=== PATIENT | male | born 1950 | race Caucasian/White ===

== ENCOUNTER 2023-07-21 14:08 | Inpatient (IN) ==
[2023-07-21] MEDS ORDERED: Lactated Ringers 1000 ml BAG 1,000 ML IV ONE ×2 (16:03→16:42)
[2023-07-21 16:05] LABS: Hematocrit 37.9 % (38-53); Hemoglobin 12.9 g/dL (13.2-16.3); Mean Corpuscular Hemoglobin 31.2 pg (27-33); Mean Corpuscular Hgb Conc 34.1 g/dL (31-36); Mean Corpuscular Volume 91.7 fL (80-97); Mean Platelet Volume 6.9 fL (7.5-11.2); Platelet Count 345 10^3/uL (150-450); Red Blood Count 4.13 10^6/uL (4.06-5.63); Red Cell Distribution Width 13.1 % (12-17)
[2023-07-21] MEDS ORDERED: Ciprofloxacin 400mg IVPREMIX 400 MG/200 ML BAG IVPB ONE (16:35)
[2023-07-21 16:40] LABS: ABS Eosinophils 0.2 10^3/uL (0.0-0.5); ABS Lymphocytes 0.6 10^3/uL (1.0-4.8); ABS Monocytes 1.3 10^3/uL (0.0-1.1); ABS Neutrophils 25.9 10^3/uL (1.5-7.6); ABS Nucleated RBC 0.01 10^3/ul; Eosinophil % 0.8 %; RBC Morphology Normal (Normal)
[2023-07-21 16:51] LABS: Albumin 3.9 g/dL (3.2-5.2); Albumin/Globulin Ratio 1.3 (1-3); Calcium 9.4 mg/dL (8.6-10.3); Creatinine, Serum 1.13 mg/dL (0.67-1.17); Potassium 4.3 mmol/L (3.5-5.0); Total Bilirubin 1.4 mg/dL (0.2-1.0); Total Protein 6.9 g/dL (6.4-8.9); eGFR CKD-EPI 69.9 (>60)
[2023-07-21 17:01] LABS: Urine Appearance Cloudy; Urine Bilirubin Negative (Negative); Urine Blood Negative (Negative); Urine Color Amber; Urine Glucose Negative (Negative); Urine Ketones Negative (Negative); Urine Nitrite Negative (Negative); Urine Protein 2+(100 mg/dL) (Negative); Urine Specific Gravity 1.019 (1.002-1.030); Urine Urobilinogen Negative (Negative)
[2023-07-21 17:15] LABS: Urine Bacteria 2+ (Absent); Urine Red Blood Cell Absent (Absent); Urine White Blood Cell 3+(>20/hpf) (Absent)
[2023-07-21 17:45] LABS: High Sensitivity Troponin 1 Hr 11 pg/mL (<20)
[2023-07-21 20:25] LABS: C Reactive Protein 308.42 mg/L (<8.01)
[2023-07-21] MEDS ORDERED: Piperacillin/Tazobac 3.375 BAG 3.375 GM/100 ML BAG IV ONE (21:24)
[2023-07-21] MEDS ORDERED: Zosyn per Pharmacy NOTE FOLLOW UP SCH (22:00)
[2023-07-21 22:23] LABS: Erythrocyte Sed Rate 70 mm/Hr (0-19)
[2023-07-22] MEDS: ZOSYN 3.375 GM Q8H per EXTENDED INFUSION IV SCH ×3 (03:37→03:52)
[2023-07-22] MEDS ORDERED: Polyethylene Glycol 3350 17 GM PACKET PO PRN (04:20)
[2023-07-22 06:20] LABS: ABS Lymphocytes 0.9 10^3/uL (1.0-4.8); ABS Monocytes 0.8 10^3/uL (0.0-1.1); ABS Neutrophils 14.4 10^3/uL (1.5-7.6); Eosinophil % 0.1 %; Hematocrit 33.1 % (38-53); Hemoglobin 11.6 g/dL (13.2-16.3); Lymphocyte % 5.8 %; Mean Corpuscular Hemoglobin 31.5 pg (27-33); Mean Corpuscular Volume 89.8 fL (80-97); Mean Platelet Volume 7.1 fL (7.5-11.2); Platelet Count 258 10^3/uL (150-450); Red Blood Count 3.69 10^6/uL (4.06-5.63); Red Cell Distribution Width 13.2 % (12-17); White Blood Count 16.1 10^3/uL (3.6-10.2)
[2023-07-22 06:36] LABS: Creatinine, Serum 0.86 mg/dL (0.67-1.17); Potassium 3.6 mmol/L (3.5-5.0); eGFR CKD-EPI 93.1 (>60)
[2023-07-22 07:48] LABS: Direct Bilirubin 0.2 mg/dL (0.03-0.18); Total Bilirubin 1.2 mg/dL (0.2-1.0)
[2023-07-22 08:16] LABS: Magnesium 1.8 mg/dL (1.9-2.7)
[2023-07-22] MEDS ORDERED: Magnesium Sulfate IV 1GM/100ML 1 GM/100 ML BAG IV ONE (08:42)
[2023-07-22] MEDS: Enoxaparin 40 MG/0.4 ML SYR SUBCUT SCH (09:44)
[2023-07-22] MEDS: cefTRIAXone 1 gm/50 mL D5W 1 GM/50 ML BAG IV SCH ×2 (11:43→12:10)
[2023-07-22] MEDS ORDERED: Vancomycin 1,000 MG in NS 0.9% 250 ml 250 ML IVPB ONE (13:57)
[2023-07-22] MEDS ORDERED: Vancomycin per Pharmacy 1 EA NOTE FOLLOW UP PRN (14:15)
[2023-07-23] MEDS: Vancomycin 1000 MG in NS 0.9% 250 ML IVPB SCH ×2 (02:36→13:44)
[2023-07-23 06:21] LABS: Hematocrit 33.7 % (38-53); Hemoglobin 11.9 g/dL (13.2-16.3); Mean Corpuscular Hemoglobin 31.8 pg (27-33); Mean Corpuscular Hgb Conc 35.4 g/dL (31-36); Mean Corpuscular Volume 89.9 fL (80-97); Mean Platelet Volume 7.8 fL (7.5-11.2); Platelet Count 270 10^3/uL (150-450); Red Blood Count 3.75 10^6/uL (4.06-5.63); Red Cell Distribution Width 13.1 % (12-17); White Blood Count 8.4 10^3/uL (3.6-10.2)
[2023-07-23 06:40] LABS: Albumin/Globulin Ratio 1.3 (1-3); Calcium 7.6 mg/dL (8.6-10.3); Creatinine, Serum 0.76 mg/dL (0.67-1.17); Globulin 2.4 g/dL (2-4); Magnesium 1.9 mg/dL (1.9-2.7); Potassium 3.7 mmol/L (3.5-5.0); Total Bilirubin 0.7 mg/dL (0.2-1.0); Total Protein 5.4 g/dL (6.4-8.9); eGFR CKD-EPI 96.7 (>60)
[2023-07-23] MEDS ORDERED: KCL 20 MEQ/100 ML IVPREMIX 20 MEQ/100 ML BAG IV ONE (07:01)
[2023-07-23] MEDS ORDERED: Magnesium Sulfate IV 1GM/100ML 1 GM/100 ML BAG IV ONE (07:02)
[2023-07-23 07:48] LABS: ABS Lymphocytes 0.6 10^3/uL (1.0-4.8); ABS Monocytes 0.6 10^3/uL (0.0-1.1); ABS Neutrophils 7.1 10^3/uL (1.5-7.6); Eosinophil % 0.5 %; RBC Morphology Normal (Normal)
[2023-07-23] MEDS ORDERED: Polyethylene Glycol 3350 17 GM PACKET PO SCH (09:00)
[2023-07-23] MEDS: Enoxaparin 40 MG/0.4 ML SYR SUBCUT SCH (09:23)
[2023-07-23] MEDS: cefTRIAXone 1 gm/50 mL D5W 1 GM/50 ML BAG IV SCH (11:31)
[2023-07-24] MEDS: Vancomycin 1000 MG in NS 0.9% 250 ML IVPB SCH (02:22)
[2023-07-24 07:44] LABS: ABS Eosinophils 0.1 10^3/uL (0.0-0.5); ABS Monocytes 0.8 10^3/uL (0.0-1.1); ABS Neutrophils 5.8 10^3/uL (1.5-7.6); ABS Nucleated RBC 0.01 10^3/ul; Eosinophil % 1.1 %; Hematocrit 36.5 % (38-53); Hemoglobin 12.9 g/dL (13.2-16.3); Lymphocyte % 12.9 %; Mean Corpuscular Hemoglobin 31.8 pg (27-33); Mean Corpuscular Hgb Conc 35.4 g/dL (31-36); Mean Corpuscular Volume 89.9 fL (80-97); Mean Platelet Volume 7.4 fL (7.5-11.2); Nucleated Red Blood Cells % 0.1 %/100WBC (0.0-0.8); Platelet Count 320 10^3/uL (150-450); Red Blood Count 4.06 10^6/uL (4.06-5.63); Red Cell Distribution Width 13.4 % (12-17); White Blood Count 7.7 10^3/uL (3.6-10.2)
[2023-07-24 08:02] LABS: Albumin 3.2 g/dL (3.2-5.2); Albumin/Globulin Ratio 1.3 (1-3); Calcium 8.2 mg/dL (8.6-10.3); Creatinine, Serum 0.77 mg/dL (0.67-1.17); Globulin 2.5 g/dL (2-4); Total Bilirubin 0.6 mg/dL (0.2-1.0); Total Protein 5.7 g/dL (6.4-8.9); eGFR CKD-EPI 96.3 (>60)
[2023-07-24] MEDS: Enoxaparin 40 MG/0.4 ML SYR SUBCUT SCH (08:20)
[2023-07-24] MEDS: Polyethylene Glycol 3350 17 GM PACKET PO SCH (08:20)
[2023-07-24] MEDS: Psyllium PAK PO SCH (08:20)
[2023-07-24] MEDS ORDERED: Vancomycin Trough Check NOTE FOLLOW UP ONE (13:30)
[2023-07-24 14:11] LABS: Creatinine, Serum 0.89 mg/dL (0.67-1.17); eGFR CKD-EPI 92.2 (>60)
[2023-07-25 06:56] LABS: ABS Eosinophils 0.1 10^3/uL (0.0-0.5); ABS Lymphocytes 1.4 10^3/uL (1.0-4.8); ABS Monocytes 0.8 10^3/uL (0.0-1.1); ABS Neutrophils 5.1 10^3/uL (1.5-7.6); Eosinophil % 1.5 %; Hematocrit 37.2 % (38-53); Hemoglobin 12.9 g/dL (13.2-16.3); Lymphocyte % 18.9 %; Mean Corpuscular Hemoglobin 31.2 pg (27-33); Mean Corpuscular Hgb Conc 34.8 g/dL (31-36); Mean Corpuscular Volume 89.9 fL (80-97); Mean Platelet Volume 7.6 fL (7.5-11.2); Platelet Count 330 10^3/uL (150-450); Red Blood Count 4.14 10^6/uL (4.06-5.63); Red Cell Distribution Width 13.3 % (12-17); White Blood Count 7.4 10^3/uL (3.6-10.2)
[2023-07-25] MEDS: Polyethylene Glycol 3350 17 GM PACKET PO SCH (07:12)
[2023-07-25] MEDS: Psyllium PAK PO SCH (07:13)
[2023-07-25 07:15] LABS: Albumin 3.3 g/dL (3.2-5.2); Albumin/Globulin Ratio 1.2 (1-3); Calcium 8.4 mg/dL (8.6-10.3); Creatinine, Serum 0.85 mg/dL (0.67-1.17); Globulin 2.7 g/dL (2-4); Potassium 4.1 mmol/L (3.5-5.0); Total Bilirubin 0.5 mg/dL (0.2-1.0); eGFR CKD-EPI 93.5 (>60)
[2023-07-25] MEDS: Enoxaparin 40 MG/0.4 ML SYR SUBCUT SCH (08:59)
[2023-07-25] MEDS ORDERED: Psyllium PAK PO SCH (10:32)
[2023-07-25] MEDS ORDERED: Vancomycin 1,000 MG in NS 0.9% 250 ml 250 ML IVPB ONE (10:33)
[2023-07-25] MEDS ORDERED: Vancomycin per Pharmacy 1 EA NOTE FOLLOW UP PRN (10:43)
[2023-07-25] MEDS ORDERED: Lactated Ringers 1000 ml BAG 500 ML IV ONE (14:21)
[2023-07-26] MEDS: Vancomycin 1000 MG in NS 0.9% 250 ML IVPB SCH ×2 (01:11→12:22)
[2023-07-26 06:56] LABS: Albumin 3.3 g/dL (3.2-5.2); Albumin/Globulin Ratio 1.2 (1-3); Calcium 8.6 mg/dL (8.6-10.3); Creatinine, Serum 0.72 mg/dL (0.67-1.17); Globulin 2.8 g/dL (2-4); Potassium 4.2 mmol/L (3.5-5.0); Total Bilirubin 0.6 mg/dL (0.2-1.0); Total Protein 6.1 g/dL (6.4-8.9); eGFR CKD-EPI 98.3 (>60)
[2023-07-26] MEDS: Enoxaparin 40 MG/0.4 ML SYR SUBCUT SCH (08:30)
[2023-07-26 12:17] LABS: Hepatitis B Surface Antigen Nonreactive (Nonreactive)
[2023-07-26 12:22] LABS: Hepatitis A Ab IgM Negative (Negative)
[2023-07-26 12:23] LABS: Hepatitis B Core IgM Nonreactive (Nonreactive)
[2023-07-26 12:35] LABS: Hepatitis C Antibody Negative (Negative)
[2023-07-26] MEDS ORDERED: Lactated Ringers 1000 ml BAG 1,000 ML IV ONE (15:49)
[2023-07-27] MEDS: Vancomycin 1000 MG in NS 0.9% 250 ML IVPB SCH ×3 (00:21→23:27)
[2023-07-27 06:42] LABS: Albumin 3.3 g/dL (3.2-5.2); Albumin/Globulin Ratio 1.3 (1-3); Calcium 8.4 mg/dL (8.6-10.3); Creatinine, Serum 0.84 mg/dL (0.67-1.17); Globulin 2.5 g/dL (2-4); Potassium 4.4 mmol/L (3.5-5.0); Total Bilirubin 0.5 mg/dL (0.2-1.0); Total Protein 5.8 g/dL (6.4-8.9); eGFR CKD-EPI 93.8 (>60)
[2023-07-27] MEDS: Enoxaparin 40 MG/0.4 ML SYR SUBCUT SCH (08:07)
[2023-07-28] MEDS: Enoxaparin 40 MG/0.4 ML SYR SUBCUT SCH (08:41)
[2023-07-28 09:42] VITALS: BP 118/61
[2023-07-28] MEDS ORDERED: Vancomycin Trough Check NOTE FOLLOW UP ONE (11:30)
[2023-07-28 12:27] LABS: Adenovirus F40/41 Negative (Negative); Astrovirus Negative (Negative); Cryptosporidium species Negative (Negative); Cyclospora cayetanensis Negative (Negative); Entamoeba histolytica Negative (Negative); Enteroaggregative E.coli(EAEC) Negative (Negative); Enteropathogenic Ecoli(EPEC) Negative (Negative); Enterotoxigenic Ecoli(ETEC) Negative (Negative); Norovirus GI/GII Negative (Negative); Plesiomonas shigelloides Negative (Negative); Salmonella species Negative (Negative); Sapovirus Negative (Negative); Shiga toxin producing E. coli Negative (Negative); Shigella/Enteroinvasive E.coli Negative (Negative); Specimen Source STOOL; Vibrio cholerae Negative (Negative); Yersinia species Negative (Negative)
[2023-07-28 12:33] LABS: Albumin 3.6 g/dL (3.2-5.2); Albumin/Globulin Ratio 1.3 (1-3); Calcium 8.7 mg/dL (8.6-10.3); Creatinine, Serum 0.81 mg/dL (0.67-1.17); Globulin 2.7 g/dL (2-4); Potassium 3.9 mmol/L (3.5-5.0); Total Bilirubin 0.5 mg/dL (0.2-1.0); Total Protein 6.3 g/dL (6.4-8.9); eGFR CKD-EPI 94.9 (>60)
[2023-07-28] MEDS: Vancomycin 1000 MG in NS 0.9% 250 ML IVPB SCH (12:59)
== END 2023-07-28 14:15 | DRG 872 ==
LOC: ED 14:08 → SUATTDRO 19:57 → EDHOLD 19:57 → MEDTELE 21:01
PROVIDERS: ADMIT Hospitalist; ATTEND Hospitalist